=== PATIENT | male | born 1965 | race African-American/Black ===

== ENCOUNTER 2018-07-03 02:17 | Emergency (ER) | payer OTHER, MEDICAID ==
[~2018-07-03] VITALS: Ht 170.2 cm; Wt 78.0 kg
[2018-07-03] MEDS ORDERED: IBUPROFEN 600MG TABLET PO STA (04:07)
[2018-07-03 04:31] LABS: EOSINOPHILS % 0.7 % (0.0-5.0); HEMATOCRIT. 43.6 % (42.0-52.0); HEMOGLOBIN. 14.9 g/dL (14.0-18.0); LYMPHOCYTES % 58.8 % (20.0-50.0); MEAN CORPUSCULAR VOLUME 84.6 fL (80.0-94.0); MEAN PLATELET VOLUME 6.5 fl (7.4-10.4); MONOCYTES % 6.7 % (2.0-8.0); NEUTROPHILS % 32.8 % (40.0-76.0); PLATELET 248 x1000/uL (130-400); RED BLOOD CELL COUNT 5.16 mill/uL (4.7-6.1); RED CELL DISTRIBUTION WIDTH 15.8 % (11.6-14.6)
[2018-07-03 04:37] LABS: CHLORIDE 108 mEq/L (98-107)
[2018-07-03] MEDS ORDERED: NICOTINE 7MG PATCH TD NR (05:00)
[2018-07-03 05:01] LABS: CLARITY URINE CLEAR (CLEAR); COLOR URINE YELLOW (YELLOW); KETONES URINE TRACE (NEGATIVE); LEUKOCYTE ESTERASE URINE NEGATIVE (NEGATIVE); NITRITE URINE NEGATIVE (NEGATIVE); OCCULT BLOOD URINE 1+ (NEGATIVE); PH URINE 5.5 (4.5-8.0); PROTEIN URINE 2+ (NEGATIVE); SPECIFIC GRAVITY URINE 1.008 (1.005-1.030); UROBILINOGEN URINE 0.2 E.U./dL (0.2-1.0)
[2018-07-03 05:10] LABS: *AMPHETAMINES SCREEN URINE NEGATIVE (NEGATIVE)
[2018-07-03 05:11] LABS: *BARBITURATES SCREEN URINE NEGATIVE (NEGATIVE); *BENZODIAZEPINES SCREEN URINE NEGATIVE (NEGATIVE); *COCAINE SCREEN URINE NEGATIVE (NEGATIVE); METHADONE URINE SCREEN NEGATIVE (NEGATIVE); OPIATES URINE SCREEN NEGATIVE (NEGATIVE); PHENCYCLIDINE URINE SCREEN NEGATIVE (NEGATIVE)
[2018-07-03 05:12] LABS: CANNABINOID URINE SCREEN NEGATIVE (NEGATIVE)
[2018-07-03 05:16] LABS: ETHANOL BLOOD 372 mg/dL
[2018-07-03 09:02] VITALS: BP 129/85
== END 2018-07-03 09:29 | disposition left against medical advice (07) ==
LOC: ER 03:16
DX: F10.20 Alcohol dependence, uncomplicated (principal); G89.29 Other chronic pain; R10.9 Unspecified abdominal pain; R74.8 Abnormal levels of other serum enzymes; R82.998 Other abnormal findings in urine; F17.200 Nicotine dependence, unspecified, uncomplicated
CPT/HCPCS: 36415; 80053; 80305; 80320; 81003; 83690; 85025; 99283; Z7610; G0480

== ENCOUNTER 2021-08-08 14:23 | Emergency (ER) | payer OTHER, MEDICAID ==
[~2021-08-08] VITALS: Ht 170.2 cm; Wt 79.0 kg
[2021-08-08] MEDS ORDERED: ONDANSETRON HCL 4MG/2ML INJ IV NR (15:15)
[2021-08-08] MEDS ORDERED: ACETAMINOPHEN 325MG TABLET PO NR (15:15)
[2021-08-08] MEDS ORDERED: MIDAZOLAM HCL 5 MG/5 ML VIAL IV NR (15:15)
[2021-08-08] MEDS ORDERED: SODIUM CHLORIDE 0.9% 1,000 ML IV NR (15:15)
[2021-08-08] MEDS ORDERED: FAMOTIDINE 20MG/2ML VIAL IV NR (15:15)
[2021-08-08 15:39] LABS: BASOPHILS % 0.7 % (0.0-2.0); EOSINOPHILS % 0.3 % (0.0-5.0); HEMOGLOBIN. 13.2 g/dL (14.0-18.0); LYMPHOCYTES % 25.6 % (20.0-50.0); MEAN CORPUSCULAR HEMOGLOBIN 27.6 pg (28.0-32.0); MEAN CORPUSCULAR VOLUME 81.5 fL (80.0-94.0); MEAN PLATELET VOLUME 7.4 fl (7.4-10.4); MONOCYTES % 6.3 % (2.0-8.0); NEUTROPHILS % 67.1 % (40.0-76.0); PLATELET 234 x1000/uL (130-400); RED BLOOD CELL COUNT 4.78 mill/uL (4.7-6.1); RED CELL DISTRIBUTION WIDTH 19.9 % (11.6-14.6)
[2021-08-08 15:50] LABS: CHLORIDE 105 mEq/L (98-107)
[2021-08-08] MEDS ORDERED: POTASSIUM CHLORIDE 20MEQ TABLET SR PO SCH (16:15)
[2021-08-08] MEDS ORDERED: MAGNESIUM 2 G PREMIX 50 ML IV NR (17:00)
[2021-08-08] MEDS: MORPHINE SULFATE 4 MG/ML CPJ (NOT FOR IM USE) IV NR ×4 (17:08→18:13)
[2021-08-08] MEDS ORDERED: AMOX-424 MT (17:28)
[2021-08-08] MEDS ORDERED: MAG-55 MT (17:28)
[2021-08-08] MEDS ORDERED: ONDA4TAB5 MT (17:28)
[2021-08-08] MEDS ORDERED: FAMO20TA8 MT (17:28)
[2021-08-08 18:13] VITALS: BP 121/110
== END 2021-08-08 18:10 | disposition home or self-care (01) ==
LOC: ER 14:23
DX: N20.0 Calculus of kidney (principal); I10 Essential (primary) hypertension; F10.20 Alcohol dependence, uncomplicated; Y90.9 Presence of alcohol in blood, level not specified; E78.00 Pure hypercholesterolemia, unspecified; F41.9 Anxiety disorder, unspecified
CPT/HCPCS: 36415; 71045; 74176; 80053; 83735; 83880; 84484; 85025; 93005; 96361; 96365; 96375; 99285; J2250; J2270; J2405; J3475; J3490

== ENCOUNTER 2023-10-21 04:04 | Inpatient (IN) | payer MEDICAID, OTHER ==
[~2023-10-21] VITALS: Ht 170.2 cm; Wt 79.4 kg
[~2023-10-21 04:04] MED LIST: AMOX-424 MT; FAMO20TA8 MT; MAG-55 MT; ONDA4TAB5 MT
[2023-10-21 05:20] LABS: BASOPHILS % 0.4 % (0.0-2.0); EOSINOPHILS % 0.1 % (0.0-5.0); HEMATOCRIT. 49.3 % (42.0-52.0); HEMOGLOBIN. 16.8 g/dL (14.0-18.0); LYMPHOCYTES % 15.3 % (20.0-50.0); MEAN CORPUSCULAR HEMOGLOBIN 30.5 pg (28.0-32.0); MEAN CORPUSCULAR VOLUME 89.6 fL (80.0-94.0); MEAN PLATELET VOLUME 7.6 fl (7.4-10.4); MONOCYTES % 2.5 % (2.0-8.0); NEUTROPHILS % 81.7 % (40.0-76.0); PLATELET 323 x1000/uL (130-400); WHITE BLOOD COUNT 9.7 x1000/uL (4.5-11.0)
[2023-10-21 05:25] LABS: CHLORIDE 96 mEq/L (98-107); POTASSIUM 3.5 mEq/L (3.5-5.1); SODIUM 133 mEq/L (136-145)
[2023-10-21 05:26] LABS: CALCIUM 11.9 mg/dL (8.7-10.4); CARBON DIOXIDE 18 mEq/L (21-32)
[2023-10-21 05:31] LABS: CREATININE 3.5 mg/dL (0.6-1.3); GLUCOSE 213 mg/dL (70-105)
[2023-10-21 05:32] LABS: ETHANOL BLOOD < 10 mg/dL (<10); UREA NITROGEN BLOOD 7 mg/dL (9-23)
[2023-10-21 05:33] LABS: ALANINE AMINOTRANSFERASE 47 IU/L (10-49); ASPARTATE AMINOTRANSFERASE 46 IU/L (<34); BILIRUBIN DIRECT 0.3 mg/dL (<=3.0)
[2023-10-21 05:34] LABS: BILIRUBIN TOTAL 1.1 mg/dL (0.1-1.0); PROTEIN TOTAL 10.1 g/dL (6.0-8.3)
[2023-10-21] MEDS: MAGNESIUM/ALUMINUM HYDROXIDE/SIMETHICONE 30ML UDC PO ONE (05:35)
[2023-10-21] MEDS: FAMOTIDINE 20MG TABLET PO ONE (05:36)
[2023-10-21] MEDS: ACETAMINOPHEN 325MG TABLET PO ONE (05:36)
[2023-10-21] MEDS: SODIUM CHLORIDE 0.9% 1,000 ML IV ONE (05:37)
[2023-10-21 05:45] LABS: ALBUMIN 6.1 g/dL (3.2-4.8)
[2023-10-21 06:00] LABS: TROPONIN I HIGH SENSITIVITY 8 ng/L (3.0-53)
[2023-10-21 06:01] LABS: CREATINE KINASE 167 IU/L (46-171)
[2023-10-21] MEDS: MELATONIN 3MG TABLET PO SCH (06:15)
[2023-10-21] MEDS: DIPHENHYDRAMINE 50MG CAPSULE PO ONE (06:16)
[2023-10-21 10:38] LABS: CLARITY URINE HAZY (CLEAR); COLOR URINE YELLOW (YELLOW); GLUCOSE URINE NEGATIVE (NEGATIVE); KETONES URINE TRACE (NEGATIVE); LEUKOCYTE ESTERASE URINE NEGATIVE (NEGATIVE); NITRITE URINE NEGATIVE (NEGATIVE); OCCULT BLOOD URINE 2+ (NEGATIVE); PROTEIN URINE 3+ (NEGATIVE); SPECIFIC GRAVITY URINE 1.031 (1.005-1.030)
[2023-10-21 11:02] LABS: BACTERIA URINE 4+; RBC URINE 0-2 /hpf (0-2); SQUAMOUS EPITHELIAL CELL URINE FEW /lpf (RARE/1+); WBC URINE 15-25 /hpf (0-2); YEAST URINE NONE SEEN
[2023-10-21 11:16] LABS: *AMPHETAMINES SCREEN URINE NEGATIVE (NEGATIVE); *BENZODIAZEPINES SCREEN URINE NEGATIVE (NEGATIVE)
[2023-10-21 11:17] LABS: *BARBITURATES SCREEN URINE NEGATIVE (NEGATIVE); *COCAINE SCREEN URINE NEGATIVE (NEGATIVE); CANNABINOID URINE SCREEN NEGATIVE (NEGATIVE); ECSTASY MDMA SCREEN URINE NEGATIVE (NEGATIVE); METHADONE URINE SCREEN NEGATIVE (NEGATIVE); OPIATES URINE SCREEN NEGATIVE (NEGATIVE); PHENCYCLIDINE URINE SCREEN NEGATIVE (NEGATIVE)
[2023-10-21 12:00] VITALS: BP 119/86; PULSE 108; RESP 18; TEMP 98.6
[2023-10-21 13:23] VITALS: BP 119/86; PULSE 101; RESP 18; TEMP 98.6
[2023-10-21 16:00] VITALS: BP 121/59; PULSE 102; RESP 18; TEMP 98.8
[2023-10-21] MEDS ORDERED: PRAV40TA58 MT (16:26)
[2023-10-21] MEDS ORDERED: PANT40TA51 MT (16:26)
[2023-10-21] MEDS ORDERED: AMLO5TAB4 MT (16:26)
[2023-10-21] MEDS ORDERED: CLONIDINE 0.1MG TABLET PO PRN (18:30)
[2023-10-21] MEDS ORDERED: ACETAMINOPHEN 325MG TABLET PO PRN (18:30)
[2023-10-21] MEDS ORDERED: MORPHINE SULFATE 2 MG/ML INJ (NOT FOR IM USE) IV PRN (18:30)
[2023-10-21] MEDS ORDERED: ONDANSETRON HCL 4MG/2ML INJ IV PRN (18:30)
[2023-10-21] MEDS: THIAMINE HCL 100MG TABLET PO SCH (18:44)
[2023-10-21] MEDS: SODIUM CHLORIDE 0.9% 1,000 ML IV SCH (18:44)
[2023-10-21 20:00] VITALS: BP 112/80; PULSE 109; RESP 18; TEMP 97.9
[2023-10-21] MEDS ORDERED: ENOXAPARIN 30MG/0.3ML SYR SUBCUT SCH (20:00)
[2023-10-21] MEDS: CEFTRIAXONE 1GM/50ML 50 ML IV SCH (20:50)
[2023-10-21 20:55] LABS: *AMPHETAMINES SCREEN URINE NEGATIVE (NEGATIVE); *BARBITURATES SCREEN URINE NEGATIVE (NEGATIVE); *BENZODIAZEPINES SCREEN URINE NEGATIVE (NEGATIVE); *COCAINE SCREEN URINE NEGATIVE (NEGATIVE)
[2023-10-21 20:56] LABS: CANNABINOID URINE SCREEN NEGATIVE (NEGATIVE); ECSTASY MDMA SCREEN URINE NEGATIVE (NEGATIVE); METHADONE URINE SCREEN NEGATIVE (NEGATIVE); OPIATES URINE SCREEN NEGATIVE (NEGATIVE); PHENCYCLIDINE URINE SCREEN NEGATIVE (NEGATIVE)
[2023-10-22] VITALS: BP 118/71; PULSE 90; RESP 19; TEMP 98
[2023-10-22 04:00] VITALS: BP 120/81; PULSE 97; RESP 20; TEMP 97.9
[2023-10-22 07:17] LABS: BASOPHILS % 0.6 % (0.0-2.0); EOSINOPHILS % 0.8 % (0.0-5.0); HEMATOCRIT. 40.8 % (42.0-52.0); HEMOGLOBIN. 13.6 g/dL (14.0-18.0); LYMPHOCYTES % 33.7 % (20.0-50.0); MEAN CORPUSCULAR HEMOGLOBIN 30.3 pg (28.0-32.0); MEAN CORPUSCULAR HGB CONC 33.4 g/dL (31.0-37.0); MEAN CORPUSCULAR VOLUME 90.6 fL (80.0-94.0); MONOCYTES % 5.3 % (2.0-8.0); NEUTROPHILS % 59.6 % (40.0-76.0); PLATELET 241 x1000/uL (130-400); RED CELL DISTRIBUTION WIDTH 17.8 % (11.6-14.6); WHITE BLOOD COUNT 6.6 x1000/uL (4.5-11.0)
[2023-10-22 07:19] LABS: POTASSIUM 3.1 mEq/L (3.5-5.1)
[2023-10-22 07:20] LABS: CALCIUM 9.6 mg/dL (8.7-10.4)
[2023-10-22 07:23] LABS: CREATINE KINASE MB FRACTION 1.3 ng/mL (0.5-3.6)
[2023-10-22 07:44] LABS: CREATININE 1.6 mg/dL (0.6-1.3)
[2023-10-22 08:00] VITALS: BP 124/75; PULSE 90; RESP 18; TEMP 98.1
[2023-10-22 12:00] VITALS: BP 113/69; PULSE 93; RESP 18; TEMP 97.7
[2023-10-22] MEDS: METRONIDAZOLE 500MG TABLET PO SCH (13:55)
[2023-10-22 15:22] VITALS: BP 113/69; PULSE 93; TEMP 98; O2SAT 96
[2023-10-22 16:00] VITALS: BP 144/96; PULSE 81; RESP 18; TEMP 98.1
== END 2023-10-22 17:10 | disposition home or self-care (01) | DRG 463 ==
LOC: ER 04:04 → 5WST 08:57 → EDBEDREQ 09:02 → 6WST 12:25
PROVIDERS: ADMIT Family Medicine Adult Medicine; ATTEND Family Medicine Adult Medicine
DX: N39.0 Urinary tract infection, site not specified (principal); N17.9 Acute kidney failure, unspecified; E78.00 Pure hypercholesterolemia, unspecified; A09 Infectious gastroenteritis and colitis, unspecified; I10 Essential (primary) hypertension; Z88.6 Allergy status to analgesic agent; G47.30 Sleep apnea, unspecified
CPT/HCPCS: 36415; 71045; 76770; 80048; 80076; 80305; 80320; 81003; 82550; 82553; 83880; 84484; 85025; 87426; 93005; 99291; J0696; J1650; J7030; Q0163; G0480